=== PATIENT | male | born 1975 | race Caucasian/White ===

== ENCOUNTER 2021-07-14 14:15 | Emergency (ER) | payer BC, OTHER ==
[2021-07-14 14:22] VITALS: TEMP 97.8; BMI 26.6
[2021-07-14] MEDS ORDERED: ACETAMINOPHEN 500 MG TABLET (FP) PO ONE (14:25)
[2021-07-14] MEDS ORDERED: ACETAMINOPHEN 500 MG TABLET (FP) ONE (14:31)
[2021-07-14] MEDS ORDERED: LIDOCAINE 5% TOPICAL PATCH TP ONE (15:01)
[2021-07-14] MEDS ORDERED: LIDOCAINE 5% TOPICAL PATCH ONE (15:14)
[2021-07-14 15:51] LABS: ALBUMIN 4.5 g/dl (3.4-5.0); BILIRUBIN,TOTAL 1.7 mg/dl (0.2-1); CALCIUM 8.9 mg/dl (8.5-10); TOT PROT 6.8 g/dl (6.4-8.2)
[2021-07-14] MEDS ORDERED: KETOROLAC TROMETHAMINE 15 MG/ML VIAL ONE (17:09)
[2021-07-14] MEDS ORDERED: KETOROLAC TROMETHAMINE 30 MG/1 ML VIAL IVPUSH ONE (17:09)
[2021-07-14 17:36] LABS: BASO % 0.4 % (0-2.0); EOS % 0.9 % (0-4.5); HEMATOCRIT 38.8 % (35.4-49); HEMOGLOBIN 13.3 GM/dL (11.7-16.9); LYMPH % 10.6 % (8-40); MCH 31.7 pg (25.7-33.7); MCHC 34.3 g/dl (32.0-35.9); MEAN CELL VOLUME 92.6 fl (80-96); MEAN PLT VOLUME 10.1 fl (7.5-11.1); MONO % 4.6 % (3.8-10.2); NEUT % 83.5 % (42.8-82.8); PLATELET COUNT 141 10^3/uL (134-434); RBC 4.19 M/mm3 (4.00-5.60); RDW 13.8 % (11.9-15.9); WHITE BLOOD COUNT 9.4 K/mm3 (4.0-10.0)
[2021-07-14 17:59] VITALS: BP 124/74; PULSE 68
[2021-07-14] MEDS ORDERED: LIDOCAINE PATCH REMOVAL MC SCH (22:00)
== END 2021-07-14 18:03 | disposition home or self-care (01) ==
LOC: FER 14:15
PROC: 3E0333Z Introduction of Anti-inflammatory into Peripheral Vein, Percutaneous Approach (ICD-10-PCS; principal; 2021-07-14)
DX: S20.211A Contusion of right front wall of thorax, initial encounter (principal); V00.838A Other accident with motorized mobility scooter, initial encounter; Y92.9 Unspecified place or not applicable
CPT/HCPCS: 36415; 71101-TC-RT-FY; 71260-TC; 74177-TC; 80053; 83690; 85025; 93005; 99285-25; Q9967